=== PATIENT | female | born 1955 | race Caucasian/White ===

== ENCOUNTER 2019-01-03 07:46 | Outpatient (CLI) | payer OTHER ==
[~2019-01-03 07:46] MED LIST: ALTACE2.5 MG; METFORMIN HCL500 MG; PNEU16DI2; SYNTHROID88 MCG; TOPROL XL50 MG
== END 2019-01-03 07:49 | disposition home or self-care (01) ==
LOC: TOM 07:46
DX: K57.30 Diverticulosis of large intestine without perforation or abscess without bleeding (principal); R19.5 Other fecal abnormalities